=== PATIENT | male | born 1935 | race Caucasian/White ===

== ENCOUNTER 2021-02-13 10:06 | Emergency (ER) | payer BC ==
[2021-02-13] MEDS ORDERED: FAMOTIDINE 20 MG/50 ML IVPB 20 MG/50 ML MG IVPB ONE ×2 (10:52→11:27)
[2021-02-13] MEDS ORDERED: MAG HYDROX/AL HYDROX/SIMETH -MYLANTA- ORAL SUSPENSION PO ONE (10:52)
[2021-02-13] MEDS ORDERED: MAG HYDROX/AL HYDROX/SIMETH 30 ML UNIT-DOSE CUP ONE (11:27)
[2021-02-13 11:48] LABS: EOS % 0.5 % (0-4.5); MCH 33.1 pg (25.7-33.7); WHITE BLOOD COUNT 5.7 K/mm3 (4.0-10.8)
[2021-02-13 11:52] LABS: ALBUMIN 3.8 g/dl (3.4-5.0); BILIRUBIN,TOTAL 0.8 mg/dl (0.2-1); CREATININE 1.2 mg/dl (0.55-1.3); TOT PROT 6.8 g/dl (6.4-8.2)
[2021-02-13 12:02] LABS: BASO % 4.1 % (0-2.0); HEMATOCRIT 36.6 % (35.4-49); HEMOGLOBIN 12.6 GM/dl (11.7-16.9); LYMPH % 11.2 % (8-40); MCHC 34.3 g/dl (32.0-35.9); MEAN CELL VOLUME 96.5 fl (80-96); MEAN PLT VOLUME 7.5 fl (7.5-11.1); NEUT % 72.2 % (42.8-82.8); PLATELET COUNT 152 10^3/uL (134-434); RDW 12.5 % (11.9-15.9)
[2021-02-13 12:26] LABS: EPITHELIAL CELLS RARE /hpf
[2021-02-13 12:58] VITALS: BP 160/84; PULSE 62; TEMP 97.7; BMI 23.6
[2021-02-13 13:00] LABS: LIPASE 315 U/L (73-393)
[2021-02-13] MEDS ORDERED: ONDANSETRON 4 MG/2 ML VIAL IVPUSH ONE (13:25)
[2021-02-13] MEDS ORDERED: ONDANSETRON 4 MG/2 ML VIAL ONE (13:28)
[2021-02-13 14:21] LABS: N-TERMINAL BNP 987.2 pg/ml (5-450)
== END 2021-02-13 17:18 | disposition home or self-care (01) ==
LOC: FER 10:06
PROC: 3E033NZ Introduction of Analgesics, Hypnotics, Sedatives into Peripheral Vein, Percutaneous Approach (ICD-10-PCS; principal; 2021-02-13)
PROC: 3E033GC Introduction of Other Therapeutic Substance into Peripheral Vein, Percutaneous Approach (ICD-10-PCS; 2021-02-13)
DX: K59.00 Constipation, unspecified (principal)
CPT/HCPCS: 36415; 71045-TC-FY; 71275-TC; 74174-TC; 80053; 81003; 81015; 82550; 83605; 83690; 83880; 84484; 85025; 87086; 87186; 93005; 96365; 96375; 99285-25; C9803; Q9967; U0003; U0005

== ENCOUNTER 2021-03-09 14:40 | Emergency (ER) | payer BC ==
[2021-03-09 14:57] VITALS: TEMP 97.6; BMI 23.5
[2021-03-09] MEDS ORDERED: ACETAMINOPHEN 325 MG TABLET (FP) PO ONE (15:14)
[2021-03-09] MEDS ORDERED: FAMOTIDINE 20 MG/50 ML IVPB 20 MG/50 ML MG IVPB ONE ×2 (15:22→15:28)
[2021-03-09] MEDS ORDERED: MAG HYDROX/AL HYDROX/SIMETH -MYLANTA- ORAL SUSPENSION PO ONE (15:22)
[2021-03-09] MEDS ORDERED: ACETAMINOPHEN 325 MG TABLET (FP) ONE (15:23)
[2021-03-09] MEDS ORDERED: MAG HYDROX/AL HYDROX/SIMETH 30 ML UNIT-DOSE CUP ONE (15:28)
[2021-03-09 16:00] VITALS: BP 160/76; PULSE 84
[2021-03-09] MEDS ORDERED: AZITHROMYCIN 500 MG TABLET PO ONE (16:22)
[2021-03-09] MEDS ORDERED: AZITHROMYCIN 500 MG TABLET ONE (16:23)
[2021-03-09 16:28] LABS: ALBUMIN 3.5 g/dl (3.4-5.0); BILIRUBIN,TOTAL 1.3 mg/dl (0.2-1); CALCIUM 9.4 mg/dl (8.5-10); CREATININE 1.3 mg/dl (0.55-1.3); TOT PROT 7.1 g/dl (6.4-8.2)
[2021-03-09] MEDS ORDERED: AMOX TR/POT CLAV 875MG/125MG TABLETS (FP) PO ONE (16:28)
[2021-03-09] MEDS ORDERED: AMOX TR/POT CLAV 875MG/125MG TABLETS (FP) ONE (16:29)
[2021-03-09 17:42] LABS: BASO % 0.1 % (0-2.0); HEMATOCRIT 39.7 % (35.4-49); HEMOGLOBIN 13.7 GM/dL (11.7-16.9); LYMPH % 7.9 % (8-40); MCH 33.2 pg (25.7-33.7); MCHC 34.5 g/dl (32.0-35.9); MEAN CELL VOLUME 96.4 fl (80-96); MEAN PLT VOLUME 7.8 fl (7.5-11.1); MONO % 7.2 % (3.8-10.2); NEUT % 84.8 % (42.8-82.8); PLATELET COUNT 197 10^3/uL (134-434); RBC 4.12 M/mm3 (4.00-5.60); RDW 13.7 % (11.9-15.9); WHITE BLOOD COUNT 8.2 K/mm3 (4.0-10.0)
[2021-03-09 17:44] LABS: N-TERMINAL BNP 1649.1 pg/ml (5-450)
== END 2021-03-09 16:45 | disposition left against medical advice (07) ==
LOC: FER 14:40
DX: S22.000A Wedge compression fracture of unspecified thoracic vertebra, initial encounter for closed fracture (principal); J18.9 Pneumonia, unspecified organism
CPT/HCPCS: 36415; 71046-TC-FY; 80053; 82550; 83690; 83880; 84484; 85025; 93005; 99284-25; C9803; U0003; U0005

== ENCOUNTER 2021-10-02 12:10 | Emergency (ER) | payer BC ==
[2021-10-02 12:18] VITALS: BP 133/68; PULSE 89; TEMP 98.9; BMI 24.3
[2021-10-02] MEDS ORDERED: DALBAVANCIN HCL 1,500 MG in DEXTROSE 5%-WATER - 500 ML IVPB ONE (13:03)
[2021-10-02] MEDS ORDERED: DIPHTH,PERTUSS(ACELL),TET 0.5 ML DISP.SYRIN IM ONE ×2 (13:03→13:07)
[2021-10-02 13:24] LABS: HEMATOCRIT 34.1 % (35.4-49); MCH 33.3 pg (25.7-33.7); MCHC 35.3 g/dl (32.0-35.9); MEAN CELL VOLUME 94.4 fl (80-96); MEAN PLT VOLUME 7.8 fl (7.5-11.1); PLATELET COUNT 115.9 10^3/uL (134-434); RBC 3.61 10^6/uL (4.00-5.60); RDW 14.2 % (11.9-15.9); WHITE BLOOD COUNT 10.2 10^3/uL (4.0-10.8)
[2021-10-02 13:29] LABS: ALBUMIN 3.6 g/dl (3.4-5.0); BILIRUBIN,TOTAL 1.4 mg/dl (0.2-1); CREATININE 1.6 mg/dl (0.55-1.3); TOT PROT 6.5 g/dl (6.4-8.2)
[2021-10-02 13:40] LABS: INR 1.03 (0.83-1.09); PROTHROMBIN TIME (PATIENT) 11.9 SEC (9.7-13.0)
[2021-10-02 13:41] LABS: CALCIUM 9.3 mg/dl (8.5-10)
[2021-10-02 13:42] LABS: ACTIVATED PTT 18.4 SECONDS (25.2-36.5)
[2021-10-02 14:21] LABS: TOXIC GRANULATION FEW
[2021-10-02] MEDS ORDERED: CLINDAMYCIN HCL 150 MG CAPSULE (FP) PO ONE (14:37)
[2021-10-02] MEDS ORDERED: CLINDAMYCIN HCL 150 MG CAPSULE (FP) ONE (14:43)
== END 2021-10-02 15:30 | disposition left against medical advice (07) ==
LOC: FER 12:10
PROC: 3E03329 Introduction of Other Anti-infective into Peripheral Vein, Percutaneous Approach (ICD-10-PCS; principal; 2021-10-02)
PROC: 3E0234Z Introduction of Serum, Toxoid and Vaccine into Muscle, Percutaneous Approach (ICD-10-PCS; 2021-10-02)
DX: L03.116 Cellulitis of left lower limb (principal)
CPT/HCPCS: 0241U-QW; 36415; 71045-TC-FY; 71046-TC-FY; 73590-TC-LT-FY; 80053; 85025; 85610; 85730; 86850; 86900; 86901; 87040; 87633; 90471; 90715; 93005; 96374; 99285-25; J0875

== ENCOUNTER 2021-10-04 13:40 | Inpatient (IN) | payer BC ==
[2021-10-04 13:53] VITALS: BP 109/61; PULSE 86; TEMP 98.7; BMI 23.5
[2021-10-04] MEDS ORDERED: VANCOMYCIN 1 GM in D5W (PRE-DOCKED) 1,000 MG/250 ML IVPB ONE (14:10)
[2021-10-04] MEDS ORDERED: PIPERACILLIN/TAZOB 4.5 GM 4.5 GM/100 ML BAG IVPB ONE (14:10)
[2021-10-04 15:19] LABS: HEMATOCRIT 38.5 % (35.4-49); HEMOGLOBIN 13.7 G/dL (11.7-16.9); MCH 33.2 pg (25.7-33.7); MCHC 35.5 g/dl (32.0-35.9); MEAN CELL VOLUME 93.7 fl (80-96); MEAN PLT VOLUME 8.1 fl (7.5-11.1); RBC 4.11 10^6/uL (4.00-5.60); RDW 14.9 % (11.9-15.9); WHITE BLOOD COUNT 7.5 10^3/uL (4.0-10.8)
[2021-10-04] MEDS ORDERED: VANCOMYCIN 1,000 MG VIAL (RESTRICTED TO ID ONLY) ONE (15:26)
[2021-10-04] MEDS ORDERED: PIPERACILLIN/TAZOBACTAM 4.5 GM VIAL IVPB ONE (15:26)
[2021-10-04 15:27] LABS: ALBUMIN 3.7 g/dl (3.4-5.0); BILIRUBIN,TOTAL 1.3 mg/dl (0.2-1); CALCIUM 9.3 mg/dl (8.5-10); CREATININE 1.6 mg/dl (0.55-1.3); TOT PROT 7.4 g/dl (6.4-8.2)
[2021-10-04] MEDS ORDERED: ACETAMINOPHEN 325 MG TABLET (FP) PO PRN (15:58)
[2021-10-04 16:02] LABS: PLATELET ESTIMATE ADEQUATE
[2021-10-04] MEDS ORDERED: ASPIRIN 81 MG CHEWABLE TABLETS PO SCH (22:00)
[2021-10-04] MEDS ORDERED: HYDROCHLOROTHIAZIDE 25 MG TABLET (FP) PO SCH (22:00)
[2021-10-04] MEDS ORDERED: ATORVASTATIN CA 10 MG TABLET (FP) PO SCH (22:00)
[2021-10-04] MEDS ORDERED: hydrALAZINE HCL 50 MG TABLET (FP) PO SCH (22:00)
[2021-10-04] MEDS ORDERED: PATIENT'S OWN MEDICATION (NON-FORMULARY) (Valsartan/Hydrochlorothiazide [Valsartan-Hctz 32 PO SCH (22:00)
[2021-10-04] MEDS ORDERED: VALSARTAN 160 MG TABLET PO SCH (22:00)
[2021-10-04] MEDS ORDERED: PIPERACILLIN/TAZOB 3.375 GM 3.375 GM in DEXTROSE 5%-WATER - 50 ML IVPB SCH (23:00)
[2021-10-05] MEDS ORDERED: METOPROLOL TARTRATE 50 MG TABLET (FP) PO SCH (10:00)
[2021-10-05] MEDS ORDERED: ENOXAPARIN NA (PORCINE) 40 MG/0.4 ML DISP.SYRIN SQ SCH (10:00)
[2021-10-05] MEDS ORDERED: FAMOTIDINE 20 MG TABLET PO SCH (10:00)
[2021-10-05] MEDS ORDERED: PIPERACILLIN/TAZOB 3.375 GM 3.375 GM in DEXTROSE 5%-WATER - 50 ML IVPB SCH (23:00)
== END 2021-10-04 20:37 | disposition left against medical advice (07) | DRG 602 ==
LOC: FER 13:40 → FM/S 16:02
PROVIDERS: ADMIT Internal Medicine; ATTEND Internal Medicine
DX: L03.116 Cellulitis of left lower limb (principal); U07.1 COVID-19; I10 Essential (primary) hypertension; E11.9 Type 2 diabetes mellitus without complications; E78.5 Hyperlipidemia, unspecified; I25.2 Old myocardial infarction
CPT/HCPCS: 36415; 80053; 85027; 86140; 87040; 93971-TC; 99285-25; C9803-CS; U0003; U0005

== ENCOUNTER 2022-02-10 06:16 | Observation (INO) | payer BC, OTHER ==
[2022-02-10] MEDS ORDERED: SODIUM CHLORIDE 1,000 ML IV ONE (07:00)
[2022-02-10] MEDS ORDERED: ACETAMINOPHEN 1000 MG/100 ML BAG IVPB ONE (07:07)
[2022-02-10] MEDS ORDERED: VANCOMYCIN 1 GM in D5W (PRE-DOCKED) 1,000 MG/250 ML IVPB ONE (07:07)
[2022-02-10] MEDS ORDERED: PIPERACILLIN/TAZOB 4.5 GM 4.5 GM/100 ML BAG IVPB ONE (07:07)
[2022-02-10] MEDS ORDERED: ACETAMINOPHEN INJECTION 100 ML IVPB ONE (07:46)
[2022-02-10] MEDS ORDERED: PIPERACILLIN/TAZOBACTAM 4.5 GM VIAL IVPB ONE (07:46)
[2022-02-10] MEDS ORDERED: VANCOMYCIN 1,000 MG VIAL (RESTRICTED TO ID ONLY) ONE (07:47)
[2022-02-10 08:47] LABS: HEMATOCRIT 43.3 % (35.4-49); MCH 33.5 pg (25.7-33.7); MCHC 34.6 g/dl (32.0-35.9); MEAN CELL VOLUME 96.8 fl (80-96); MEAN PLT VOLUME 8.5 fl (7.5-11.1); PLATELET COUNT 120.9 10^3/uL (134-434); RBC 4.47 10^6/uL (4.00-5.60); RDW 13.4 % (11.9-15.9)
[2022-02-10 09:19] LABS: INR 1.04 (0.83-1.09)
[2022-02-10 09:22] LABS: ACTIVATED PTT 28.6 SECONDS (25.2-36.5)
[2022-02-10 09:34] LABS: VENOUS BASE EXCESS 1.2 mmol/L (-2-2); VENOUS O2 SATURATION 31.2 % (70-80); VENOUS PCO2 48.4 mmHg (38-52); VENOUS PH 7.37 (7.310-7.410)
[2022-02-10 09:42] LABS: ALBUMIN 3.5 g/dl (3.4-5.0); BILIRUBIN,TOTAL 1.3 mg/dl (0.2-1); CALCIUM 8.8 mg/dl (8.5-10); TOT PROT 6.5 g/dl (6.4-8.2)
[2022-02-10 09:47] LABS: AMORP PHOS 1+ /hpf (NONE SEEN)
[2022-02-10 10:02] LABS: LACTIC ACID 3.6 mmol/L (0.4-2.0)
[2022-02-10] MEDS ORDERED: SODIUM CHLORIDE 500 ML IV STA (11:12)
[2022-02-10] MEDS ORDERED: POTASSIUM CHLORIDE TABS 20 MEQ TABLET.ER (FP) PO ONE (11:27)
[2022-02-10] MEDS ORDERED: VALSARTAN 160 MG TABLET PO ONE (11:28)
[2022-02-10 12:15] LABS: MAGNESIUM 1.6 mg/dL (1.8-2.4); PHOSPHOROUS 3.3 mg/dl (2.5-4.9)
[2022-02-10 12:32] VITALS: BMI 20.2
[2022-02-10] MEDS: hydrALAZINE HCL 50 MG TABLET (FP) PO SCH ×2 (12:54→22:40)
[2022-02-10] MEDS ORDERED: oxyCODONE HCL 5 MG TABLET PO PRN (13:09)
[2022-02-10] MEDS ORDERED: ACETAMINOPHEN 1000 MG/100 ML BAG IVPB PRN (13:09)
[2022-02-10] MEDS ORDERED: MAGNESIUM SULF 50% (8.12 MEQ/2 ML-1 GM VIAL) IVPB ONE (14:11)
[2022-02-10] MEDS: PIPERACILLIN/TAZOB 3.375 GM 3.375 GM in DEXTROSE 5%-WATER - 50 ML IVPB SCH (17:48)
[2022-02-10] MEDS ORDERED: PIPERACILLIN/TAZOB 3.375 GM 3.375 GM in DEXTROSE 5%-WATER - 50 ML IVPB SCH (18:00)
[2022-02-10] MEDS ORDERED: FAMOTIDINE 20 MG TABLET PO SCH ×2 (22:00)
[2022-02-10] MEDS: ASPIRIN 81 MG CHEWABLE TABLETS PO SCH (22:50)
[2022-02-11] MEDS: PIPERACILLIN/TAZOB 3.375 GM 3.375 GM in DEXTROSE 5%-WATER - 50 ML IVPB SCH ×3 (03:07→18:07)
[2022-02-11 08:23] LABS: HEMATOCRIT 38.9 % (35.4-49); HEMOGLOBIN 13.4 G/dL (11.7-16.9); MCH 32.1 pg (25.7-33.7); MCHC 34.3 g/dl (32.0-35.9); MEAN CELL VOLUME 93.5 fl (80-96); MEAN PLT VOLUME 7.5 fl (7.5-11.1); PLATELET COUNT 110.4 10^3/uL (134-434); RBC 4.16 10^6/uL (4.00-5.60); RDW 13.6 % (11.9-15.9); WHITE BLOOD COUNT 7.7 10^3/uL (4.0-10.8)
[2022-02-11 08:25] LABS: CALCIUM 8.3 mg/dl (8.5-10); CREATININE 1.1 mg/dl (0.55-1.3); MAGNESIUM 2.2 mg/dL (1.8-2.4); PHOSPHOROUS 2.4 mg/dl (2.5-4.9)
[2022-02-11] MEDS: ENOXAPARIN NA (PORCINE) 40 MG/0.4 ML DISP.SYRIN SQ SCH (09:13)
[2022-02-11] MEDS: FAMOTIDINE 20 MG TABLET PO SCH (09:14)
[2022-02-11] MEDS: hydrALAZINE HCL 50 MG TABLET (FP) PO SCH ×2 (09:14→22:16)
[2022-02-11] MEDS: FUROSEMIDE 40 MG TABLET (FP) PO SCH (09:45)
[2022-02-11] MEDS ORDERED: NAPH,MB-DB/K PH,MBDB POWDER PACKET PO ONE (09:45)
[2022-02-11] MEDS: ASPIRIN 81 MG CHEWABLE TABLETS PO SCH (22:16)
[2022-02-11] MEDS: CELECOXIB 100 MG CAPSULE PO SCH (22:16)
[2022-02-12] MEDS: PIPERACILLIN/TAZOB 3.375 GM 3.375 GM in DEXTROSE 5%-WATER - 50 ML IVPB SCH ×2 (03:00→10:04)
[2022-02-12 08:21] LABS: CALCIUM 8.5 mg/dl (8.5-10); CREATININE 1.2 mg/dl (0.55-1.3)
[2022-02-12 08:31] LABS: HEMATOCRIT 40.7 % (35.4-49); HEMOGLOBIN 13.8 G/dL (11.7-16.9); MCH 31.8 pg (25.7-33.7); MCHC 33.8 g/dl (32.0-35.9); MEAN CELL VOLUME 94.2 fl (80-96); MEAN PLT VOLUME 7.6 fl (7.5-11.1); PLATELET COUNT 120.7 10^3/uL (134-434); RBC 4.32 10^6/uL (4.00-5.60); WHITE BLOOD COUNT 7.4 10^3/uL (4.0-10.8)
[2022-02-12] MEDS: hydrALAZINE HCL 50 MG TABLET (FP) PO SCH (09:59)
[2022-02-12] MEDS: FUROSEMIDE 40 MG TABLET (FP) PO SCH (10:01)
[2022-02-12] MEDS: CELECOXIB 100 MG CAPSULE PO SCH (10:01)
[2022-02-12] MEDS: FAMOTIDINE 20 MG TABLET PO SCH (10:02)
[2022-02-12] MEDS: ENOXAPARIN NA (PORCINE) 40 MG/0.4 ML DISP.SYRIN SQ SCH (10:02)
[2022-02-12 14:23] VITALS: BP 133/68; PULSE 59; RESP 16; TEMP 98.1
== END 2022-02-12 15:45 | disposition home or self-care (01) ==
LOC: FER 06:16 → SUPCPDRO 06:16 → FM/S 10:18 → UNDOADMOB 10:18 → INTOOBSV 10:18 → FM/S 11:22
PROVIDERS: ADMIT Internal Medicine
PROC: 3E03329 Introduction of Other Anti-infective into Peripheral Vein, Percutaneous Approach (ICD-10-PCS; principal; 2022-02-10)
PROC: 3E0337Z Introduction of Electrolytic and Water Balance Substance into Peripheral Vein, Percutaneous Approach (ICD-10-PCS; 2022-02-10)
DX: M70.12 Bursitis, left hand (principal); M19.032 Primary osteoarthritis, left wrist; I10 Essential (primary) hypertension; E78.5 Hyperlipidemia, unspecified; Z87.891 Personal history of nicotine dependence; K21.9 Gastro-esophageal reflux disease without esophagitis; E11.9 Type 2 diabetes mellitus without complications; M85.80 Other specified disorders of bone density and structure, unspecified site
CPT/HCPCS: 0241U-QW; 36415; 71045-TC-FY; 73110-TC-LT-FY; 80048; 80053; 81003; 81015; 82550; 82803; 83605; 83735; 84100; 84484; 85027; 85610; 85730; 87040; 87086; 93005; 96361; 96365; 96366; 96367; 96368; 96372; 96375; 97116-GP; 97162-GP; 99285-25; G0378

== ENCOUNTER 2023-07-04 10:12 | Inpatient (IN) | payer OTHER ==
[2023-07-04] MEDS ORDERED: ACETAMINOPHEN INJECTION 100 ML IVPB ONE (11:35)
[2023-07-04] MEDS: ACETAMINOPHEN 1000 MG/100 ML BAG IVPB ONE (11:53)
[2023-07-04] MEDS ORDERED: CEFTRIAXONE 1 GM/50 ML BAG ONE (11:55)
[2023-07-04 12:22] LABS: INR 1.56 (0.83-1.09); WHITE BLOOD COUNT 7.4 K/mm3 (4.0-10.0)
[2023-07-04 12:23] LABS: BASO % 0.3 % (0-2.0); EOS % 0.1 % (0-4.5); HEMATOCRIT 34.3 % (35.4-49); HEMOGLOBIN 11.6 GM/dL (11.7-16.9); LYMPH % 22.7 % (8-40); MCH 31.3 pg (25.7-33.7); MCHC 33.9 g/dl (32.0-35.9); MEAN CELL VOLUME 92.4 fl (80-96); MEAN PLT VOLUME 6.9 fl (7.5-11.1); MONO % 14.5 % (3.8-10.2); NEUT % 62.4 % (42.8-82.8); PLATELET COUNT 223 10^3/uL (134-434); RBC 3.71 M/mm3 (4.00-5.60); RDW 15.5 % (11.9-15.9)
[2023-07-04 12:24] LABS: ACTIVATED PTT 32.1 SECONDS (25.2-36.5)
[2023-07-04 12:34] LABS: POTASSIUM 3.1 mmol/L (3.5-5.1)
[2023-07-04 12:37] LABS: ALBUMIN 2.4 g/dl (3.4-5.0); CALCIUM 8.1 mg/dL (8.5-10.1)
[2023-07-04 12:38] LABS: BLOOD UREA NITROGEN 17.4 mg/dL (7-18)
[2023-07-04 12:41] LABS: CREATININE 0.8 mg/dL (0.55-1.3)
[2023-07-04 12:42] LABS: BILIRUBIN,TOTAL 0.4 mg/dL (0.2-1); TOT PROT 6.1 g/dl (6.4-8.2)
[2023-07-04 13:28] LABS: MAGNESIUM 1.5 mg/dL (1.8-2.4)
[2023-07-04] MEDS: CEFTRIAXONE 1 GM in DEXTROSE 5%-WATER - 100 ML IVPB ONE (13:30)
[2023-07-04] MEDS ORDERED: POTASSIUM CHLORIDE TABS 10 MEQ TABLET.ER (FP) ONE (13:44)
[2023-07-04] MEDS: POTASSIUM CHLORIDE TABS 20 MEQ TABLET.ER (FP) PO ONE (13:50)
[2023-07-04] MEDS: KCL 10 MEQ IVPB 10 MEQ/100 ML INFUS.BAG IVPB SCH (14:00)
[2023-07-04] MEDS: SODIUM CHLORIDE 0.9% 500 ML INFUS.BAG IV ONE (14:10)
[2023-07-04] MEDS ORDERED: KCL 10 MEQ IVPB 10 MEQ/100 ML INFUS.BAG IVPB ONE ×2 (14:51→16:30)
[2023-07-04] MEDS: CEFAZOLIN 1 GM in DEXTROSE 5%-WATER - 50 ML IVPB ONE (15:06)
[2023-07-04] MEDS: SODIUM ZIRCONIUM CYCLOSILICATE (LOKELMA) 5 GM PACKET PO ONE (15:06)
[2023-07-04] MEDS ORDERED: PIPERACILLIN/TAZOB 3.375 GM 3.375 GM in DEXTROSE 5%-WATER - 50 ML IVPB SCH (18:00)
[2023-07-04] MEDS: PIPERACILLIN/TAZOB 3.375 GM 3.375 GM in DEXTROSE 5%-WATER - 50 ML IVPB SCH (18:26)
[2023-07-04] MEDS ORDERED: PIPERACILLIN/TAZOBACTAM 3.375 GM VIAL IVPB ONE (18:27)
[2023-07-04 18:59] LABS: POTASSIUM 4.6 mmol/L (3.5-5.1)
[2023-07-04 19:00] LABS: CALCIUM 8.7 mg/dL (8.5-10.1)
[2023-07-04 19:04] LABS: CREATININE 0.7 mg/dL (0.55-1.3)
[2023-07-04] MEDS: ASPIRIN 81 MG CHEWABLE TABLETS PO SCH (21:52)
[2023-07-04] MEDS: FAMOTIDINE 20 MG TABLET PO SCH (21:52)
[2023-07-04] MEDS: HEPARIN NA (PORCINE) 5,000 UNITS/ML 1ML VIAL SQ SCH (21:52)
[2023-07-04] MEDS: hydrALAZINE HCL 50 MG TABLET (FP) PO SCH (21:52)
[2023-07-05 09:06] LABS: BASO % 0.7 % (0-2.0); EOS % 0.5 % (0-4.5); HEMATOCRIT 32.9 % (35.4-49); LYMPH % 20.7 % (8-40); MCH 31.1 pg (25.7-33.7); MCHC 33.6 g/dl (32.0-35.9); MEAN CELL VOLUME 92.6 fl (80-96); MEAN PLT VOLUME 7.2 fl (7.5-11.1); NEUT % 65.1 % (42.8-82.8); PLATELET COUNT 202 10^3/uL (134-434); RBC 3.55 M/mm3 (4.00-5.60); RDW 15.4 % (11.9-15.9)
[2023-07-05 09:27] LABS: POTASSIUM 3.8 mmol/L (3.5-5.1)
[2023-07-05 09:33] LABS: CALCIUM 8.1 mg/dL (8.5-10.1)
[2023-07-05 09:34] LABS: ALBUMIN 2.3 g/dl (3.4-5.0); BLOOD UREA NITROGEN 15.4 mg/dL (7-18); MAGNESIUM 1.6 mg/dL (1.8-2.4)
[2023-07-05 09:36] LABS: CREATININE 0.7 mg/dL (0.55-1.3)
[2023-07-05 09:37] LABS: BILIRUBIN,TOTAL 0.7 mg/dL (0.2-1)
[2023-07-05] MEDS: VALSARTAN 160 MG TABLET PO SCH (09:40)
[2023-07-05 10:24] LABS: EPI CELLS 33 /uL (0-25.1); HYALINE CASTS 0 /uL (0-3.1); PH,URINE 8.5 (5.0-8.0); URINE APPEARANCE CLEAR; URINE BACTERIA 123 /uL (0-1359); URINE BILIRUBIN NEGATIVE (NEGATIVE); URINE COLOR YELLOW; URINE GLUCOSE (UA) 1+ (NEGATIVE); URINE KETONE NEGATIVE (NEGATIVE); URINE LEUK ESTERASE NEGATIVE (NEGATIVE); URINE NITRITE NEGATIVE (NEGATIVE); URINE PROTEIN 3+ (NEGATIVE); URINE RBC 34 /uL (0-23.9); URINE WBC 11 /uL (0-25.8)
[2023-07-05] MEDS: ACETAMINOPHEN 325 MG TABLET (FP) PO PRN (14:39)
[2023-07-05] MEDS: CEFAZOLIN 1 GM in DEXTROSE 5%-WATER - 50 ML IVPB SCH (17:56)
[2023-07-06] MEDS: MAGNESIUM OXIDE 400 MG TABLET (FP) PO SCH (22:51)
[2023-07-08] MEDS ORDERED: INSULIN ASPART SLIDING SCALE (NOVOLOG) 1 VIAL SQ ONE (07:24)
[2023-07-08 10:31] LABS: POTASSIUM 3.6 mmol/L (3.5-5.1)
[2023-07-08 10:46] LABS: CALCIUM 8.2 mg/dL (8.5-10.1)
[2023-07-08 10:47] LABS: ALBUMIN 2.2 g/dl (3.4-5.0)
[2023-07-08 10:48] LABS: BILIRUBIN,TOTAL 0.4 mg/dL (0.2-1)
[2023-07-08 10:50] LABS: CREATININE 0.9 mg/dL (0.55-1.3)
[2023-07-08 10:52] LABS: TOT PROT 5.6 g/dl (6.4-8.2)
[2023-07-08] MEDS: MULTIVITAMINS (DAILY MVI) TABLET (FP) PO SCH (13:01)
[2023-07-08] MEDS: ASCORBIC ACID 250 MG TABLET (FP) PO SCH (13:01)
[2023-07-08] MEDS: CEFAZOLIN 1 GM in DEXTROSE 5%-WATER - 50 ML IVPB SCH (23:48)
[2023-07-09] MEDS: DOCUSATE SODIUM 100 MG CAPSULE (FP) PO PRN (10:01)
[2023-07-09 10:20] LABS: BASO % 0.4 % (0-2.0); EOS % 0.3 % (0-4.5); HEMATOCRIT 33.2 % (35.4-49); HEMOGLOBIN 11.2 GM/dL (11.7-16.9); LYMPH % 18.9 % (8-40); MCH 31.3 pg (25.7-33.7); MCHC 33.7 g/dl (32.0-35.9); MEAN CELL VOLUME 92.9 fl (80-96); MEAN PLT VOLUME 7.4 fl (7.5-11.1); MONO % 13.2 % (3.8-10.2); NEUT % 67.2 % (42.8-82.8); PLATELET COUNT 194 10^3/uL (134-434); RBC 3.58 M/mm3 (4.00-5.60); RDW 15.8 % (11.9-15.9); WHITE BLOOD COUNT 6.5 K/mm3 (4.0-10.0)
[2023-07-09 10:30] LABS: POTASSIUM 3.8 mmol/L (3.5-5.1)
[2023-07-09 10:37] LABS: ALBUMIN 2.3 g/dl (3.4-5.0); BLOOD UREA NITROGEN 19.8 mg/dL (7-18); CALCIUM 8.3 mg/dL (8.5-10.1)
[2023-07-09 10:41] LABS: CREATININE 0.8 mg/dL (0.55-1.3)
[2023-07-09 10:42] LABS: BILIRUBIN,TOTAL 0.4 mg/dL (0.2-1); TOT PROT 5.8 g/dl (6.4-8.2)
[2023-07-10 08:39] LABS: BASO % 0.2 % (0-2.0); EOS % 0.5 % (0-4.5); HEMATOCRIT 30.1 % (35.4-49); HEMOGLOBIN 10.3 GM/dL (11.7-16.9); LYMPH % 21.5 % (8-40); MCH 31.8 pg (25.7-33.7); MCHC 34.2 g/dl (32.0-35.9); MEAN CELL VOLUME 92.8 fl (80-96); MEAN PLT VOLUME 7.3 fl (7.5-11.1); MONO % 14.8 % (3.8-10.2); PLATELET COUNT 185 10^3/uL (134-434); RBC 3.24 M/mm3 (4.00-5.60); RDW 16.1 % (11.9-15.9); WHITE BLOOD COUNT 7.1 K/mm3 (4.0-10.0)
[2023-07-10] MEDS ORDERED: SODIUM CHLORIDE 1,000 ML IV STA (13:10)
[2023-07-10] MEDS ORDERED: PANTOPRAZOLE SODIUM 40 MG VIAL IVPUSH ONE (13:30)
[2023-07-10] MEDS ORDERED: PANTOPRAZOLE SODIUM 80 MG in SODIUM CHLORIDE 100 ML IVPB SCH (13:30)
[2023-07-10] MEDS: SODIUM CHLORIDE 1,000 ML IV SCH (14:00)
[2023-07-10] MEDS ORDERED: PANTOPRAZOLE SODIUM 160 MG in SODIUM CHLORIDE 290 ML IVPB SCH (14:30)
[2023-07-10 14:52] LABS: BASO % 0.4 % (0-2.0); EOS % 0.8 % (0-4.5); HEMATOCRIT 28.7 % (35.4-49); HEMOGLOBIN 9.4 GM/dL (11.7-16.9); LYMPH % 18.8 % (8-40); MCH 30.8 pg (25.7-33.7); MCHC 32.9 g/dl (32.0-35.9); MEAN CELL VOLUME 93.7 fl (80-96); MEAN PLT VOLUME 7.3 fl (7.5-11.1); PLATELET COUNT 193 10^3/uL (134-434); RBC 3.07 M/mm3 (4.00-5.60); RDW 16.2 % (11.9-15.9); WHITE BLOOD COUNT 10.4 K/mm3 (4.0-10.0)
[2023-07-10 14:57] LABS: INR 1.18 (0.83-1.09); PROTHROMBIN TIME (PATIENT) 13.7 SEC (9.7-13.0)
[2023-07-10 14:59] LABS: ACTIVATED PTT 33.3 SECONDS (25.2-36.5)
[2023-07-10] MEDS ORDERED: EPINEPHrine 1:10,000 (P-F SYR) 1 MG/10 ML DISP.SYRIN ONE (15:03)
[2023-07-10 15:15] LABS: CALCIUM 7.7 mg/dL (8.5-10.1); POTASSIUM 4.2 mmol/L (3.5-5.1)
[2023-07-10 15:16] LABS: BLOOD UREA NITROGEN 19.4 mg/dL (7-18)
[2023-07-10 15:19] LABS: CREATININE 0.7 mg/dL (0.55-1.3)
[2023-07-10 15:21] LABS: BILIRUBIN,TOTAL 0.3 mg/dL (0.2-1); TOT PROT 5.1 g/dl (6.4-8.2)
[2023-07-10] MEDS: EPINEPHrine 1:10,000 (P-F SYR) 1 MG/10 ML DISP.SYRIN IVPUSH ONE (16:04)
[2023-07-10] MEDS ORDERED: DOCUSATE SODIUM 100 MG CAPSULE (FP) PO PRN (18:52)
[2023-07-10] MEDS ORDERED: ACETAMINOPHEN 325 MG TABLET (FP) PO PRN (18:52)
[2023-07-10 19:57] LABS: BASO % 0.7 % (0-2.0); EOS % 0.2 % (0-4.5); HEMATOCRIT 29.2 % (35.4-49); HEMOGLOBIN 9.7 GM/dL (11.7-16.9); LYMPH % 15.7 % (8-40); MCH 30.4 pg (25.7-33.7); MCHC 33.1 g/dl (32.0-35.9); MEAN CELL VOLUME 91.8 fl (80-96); MEAN PLT VOLUME 7.1 fl (7.5-11.1); MONO % 13.9 % (3.8-10.2); NEUT % 69.5 % (42.8-82.8); PLATELET COUNT 168 10^3/uL (134-434); RBC 3.18 M/mm3 (4.00-5.60); RDW 17.4 % (11.9-15.9); WHITE BLOOD COUNT 8.5 K/mm3 (4.0-10.0)
[2023-07-10] MEDS: hydrALAZINE HCL 50 MG TABLET (FP) PO SCH (22:00)
[2023-07-10] MEDS: SODIUM CHLORIDE 1,000 ML IV STA (23:50)
[2023-07-10] MEDS: FAMOTIDINE 20 MG TABLET PO SCH (23:52)
[2023-07-10] MEDS: MAGNESIUM OXIDE 400 MG TABLET (FP) PO SCH (23:52)
[2023-07-10] MEDS: CHLORHEXIDINE GLUCONATE 4% CLEANSER FOR DECOLONIZATION TP SCH (23:52)
[2023-07-10] MEDS: MUPIROCIN 2% TOPICAL OINTMENT FOR DECOLONIZATION NS SCH (23:53)
[2023-07-10] MEDS: POLYETHYLENE GLYCOL (HEALTHYLAX) 3350 17 GM PACKET PO SCH (23:53)
[2023-07-11] MEDS: CEFAZOLIN 1 GM in DEXTROSE 5%-WATER - 50 ML IVPB SCH ×2 (00:45→23:56)
[2023-07-11 07:21] LABS: BASO % 0.4 % (0-2.0); EOS % 0.9 % (0-4.5); HEMATOCRIT 27.5 % (35.4-49); HEMOGLOBIN 9.4 GM/dL (11.7-16.9); LYMPH % 23.7 % (8-40); MCH 30.8 pg (25.7-33.7); MCHC 34.2 g/dl (32.0-35.9); MEAN CELL VOLUME 89.8 fl (80-96); MEAN PLT VOLUME 7.3 fl (7.5-11.1); MONO % 15.6 % (3.8-10.2); NEUT % 59.4 % (42.8-82.8); PLATELET COUNT 168 10^3/uL (134-434); RBC 3.06 M/mm3 (4.00-5.60); RDW 17.6 % (11.9-15.9); WHITE BLOOD COUNT 7.9 K/mm3 (4.0-10.0)
[2023-07-11 07:31] LABS: POTASSIUM 4.2 mmol/L (3.5-5.1)
[2023-07-11 07:38] LABS: ALBUMIN 2.1 g/dl (3.4-5.0); BLOOD UREA NITROGEN 17.4 mg/dL (7-18); MAGNESIUM 2.2 mg/dL (1.8-2.4)
[2023-07-11 07:41] LABS: CREATININE 0.7 mg/dL (0.55-1.3); PHOSPHOROUS 2.4 mg/dL (2.5-4.9)
[2023-07-11 07:42] LABS: BILIRUBIN,TOTAL 0.6 mg/dL (0.2-1); TOT PROT 4.9 g/dl (6.4-8.2)
[2023-07-11] MEDS ORDERED: VALSARTAN 160 MG TABLET PO SCH (10:00)
[2023-07-11] MEDS: ASCORBIC ACID 250 MG TABLET (FP) PO SCH (10:40)
[2023-07-11] MEDS: MULTIVITAMINS (DAILY MVI) TABLET (FP) PO SCH (10:40)
[2023-07-11] MEDS: PANTOPRAZOLE 20 MG TABLET PO SCH (13:10)
[2023-07-11 15:45] VITALS: BMI 18.3
[2023-07-11 17:43] LABS: HEMATOCRIT 26.9 % (35.4-49); HEMOGLOBIN 9.1 GM/dL (11.7-16.9); MCH 30.7 pg (25.7-33.7); MCHC 33.8 g/dl (32.0-35.9); MEAN CELL VOLUME 90.8 fl (80-96); MEAN PLT VOLUME 6.9 fl (7.5-11.1); PLATELET COUNT 169 10^3/uL (134-434); RBC 2.96 M/mm3 (4.00-5.60); RDW 18.4 % (11.9-15.9)
[2023-07-11] MEDS: SODIUM CHLORIDE 1,000 ML IV SCH (23:55)
[2023-07-12] MEDS: POLYETHYLENE GLYCOL (HEALTHYLAX) 3350 17 GM PACKET PO SCH (09:22)
[2023-07-12] MEDS: MAGNESIUM OXIDE 400 MG TABLET (FP) PO SCH (09:22)
[2023-07-12] MEDS: ACETAMINOPHEN 325 MG TABLET (FP) PO PRN (09:22)
[2023-07-12] MEDS: ASCORBIC ACID 250 MG TABLET (FP) PO SCH (09:22)
[2023-07-12] MEDS: MULTIVITAMINS (DAILY MVI) TABLET (FP) PO SCH (09:22)
[2023-07-12] MEDS ORDERED: MUPIROCIN 2% TOPICAL OINTMENT FOR DECOLONIZATION NS SCH (10:00)
[2023-07-12] MEDS ORDERED: CHLORHEXIDINE GLUCONATE 4% CLEANSER FOR DECOLONIZATION TP SCH (22:00)
[2023-07-13 12:26] LABS: BASO % 0.2 % (0-2.0); EOS % 0.4 % (0-4.5); HEMATOCRIT 25.8 % (35.4-49); HEMOGLOBIN 8.7 GM/dL (11.7-16.9); LYMPH % 18.4 % (8-40); MCH 30.9 pg (25.7-33.7); MCHC 33.6 g/dl (32.0-35.9); MEAN PLT VOLUME 7.2 fl (7.5-11.1); MONO % 14.6 % (3.8-10.2); NEUT % 66.4 % (42.8-82.8); PLATELET COUNT 177 10^3/uL (134-434); RDW 17.4 % (11.9-15.9); WHITE BLOOD COUNT 7.5 K/mm3 (4.0-10.0)
[2023-07-13 12:53] LABS: BLOOD UREA NITROGEN 11.8 mg/dL (7-18)
[2023-07-13 12:56] LABS: CREATININE 0.7 mg/dL (0.55-1.3)
[2023-07-13 12:57] LABS: BILIRUBIN,TOTAL 0.3 mg/dL (0.2-1); TOT PROT 5.1 g/dl (6.4-8.2)
[2023-07-13 13:50] LABS: POTASSIUM 4.1 mmol/L (3.5-5.1)
[2023-07-16 20:19] LABS: BASO % 0.1 % (0-2.0); EOS % 0.3 % (0-4.5); HEMATOCRIT 25.5 % (35.4-49); HEMOGLOBIN 8.5 GM/dL (11.7-16.9); LYMPH % 14.7 % (8-40); MCH 31.4 pg (25.7-33.7); MCHC 33.6 g/dl (32.0-35.9); MEAN CELL VOLUME 93.4 fl (80-96); MEAN PLT VOLUME 6.9 fl (7.5-11.1); MONO % 12.9 % (3.8-10.2); PLATELET COUNT 210 10^3/uL (134-434); RBC 2.73 M/mm3 (4.00-5.60); RDW 18.7 % (11.9-15.9); WHITE BLOOD COUNT 6.6 K/mm3 (4.0-10.0)
[2023-07-17 12:22] VITALS: BP 136/73; PULSE 106; RESP 19; TEMP 97.8
== END 2023-07-17 11:22 | disposition home health service (06) | DRG 603 ==
LOC: JER 10:12 → JERBED 16:08 → OBSVTOIN 17:14 → J6S 17:26 → J5S 07-09 18:15 → JICU 07-10 14:21 → J5S 07-11 23:26
PROVIDERS: ADMIT Family Medicine; ATTEND Family Medicine
PROC: 3E0H8GC Introduction of Other Therapeutic Substance into Lower GI, Via Natural or Artificial Opening Endoscopic (ICD-10-PCS; 2023-07-10)
PROC: 3E1H78Z Irrigation of Lower GI using Irrigating Substance, Via Natural or Artificial Opening (ICD-10-PCS; 2023-07-10)
PROC: 30233N1 Transfusion of Nonautologous Red Blood Cells into Peripheral Vein, Percutaneous Approach (ICD-10-PCS; 2023-07-10)
PROC: 0W3P8ZZ Control Bleeding in Gastrointestinal Tract, Via Natural or Artificial Opening Endoscopic (ICD-10-PCS; principal; 2023-07-10 15:15)
DX: L03.116 Cellulitis of left lower limb (principal); E87.1 Hypo-osmolality and hyponatremia; K92.1 Melena; K62.6 Ulcer of anus and rectum; E11.40 Type 2 diabetes mellitus with diabetic neuropathy, unspecified; D64.9 Anemia, unspecified; I25.10 Atherosclerotic heart disease of native coronary artery without angina pectoris; I10 Essential (primary) hypertension; E78.5 Hyperlipidemia, unspecified; B35.1 Tinea unguium; I87.2 Venous insufficiency (chronic) (peripheral); E11.65 Type 2 diabetes mellitus with hyperglycemia; K64.8 Other hemorrhoids
CPT/HCPCS: 36415; 36430; 71045-TC-FY; 73562-TC-LT-FY; 73630-TC-LT; 73700-TC-RT; 74174-TC; 80048; 80053; 81003; 82962; 83735; 83880; 83930; 83935; 84100; 84300; 84443; 84484; 85025; 85027; 85610; 85730; 86850; 86900; 86901; 86922; 87040; 87635; 93005; 93010; 93971-TC; 97116-GP; 97162-GP; 99285-25; G0378; J0131; J1644; P9038; P9058; Q9967

== ENCOUNTER 2023-08-11 12:56 | Inpatient (IN) | payer OTHER ==
[2023-08-11] MEDS ORDERED: FAMOTIDINE 20 MG TABLET ONE (14:34)
[2023-08-11] MEDS ORDERED: PIPERACILLIN/TAZOB 4.5 GM 4.5 GM/100 ML BAG IVPB ONE (14:34)
[2023-08-11] MEDS ORDERED: VANCOMYCIN 1 GRAM (PRE-DOCKED) 1,000 MG/250 ML BAG IVPB ONE (14:34)
[2023-08-11] MEDS: PIPERACILLIN/TAZOB 4.5 GM 4.5 GM in DEXTROSE 5%-WATER 100 ML IVPB ONE (14:43)
[2023-08-11 14:44] LABS: BASO % 0.2 % (0-2.0); EOS % 0.1 % (0-4.5); HEMATOCRIT 31.3 % (35.4-49); HEMOGLOBIN 10.6 GM/dL (11.7-16.9); LYMPH % 7.7 % (8-40); MCHC 33.7 g/dl (32.0-35.9); MEAN PLT VOLUME 7.3 fl (7.5-11.1); MONO % 8.5 % (3.8-10.2); NEUT % 83.5 % (42.8-82.8); PLATELET COUNT 375 10^3/uL (134-434); RDW 16.3 % (11.9-15.9); WHITE BLOOD COUNT 14.1 K/mm3 (4.0-10.0)
[2023-08-11] MEDS: FAMOTIDINE 20 MG TABLET PO ONE (14:44)
[2023-08-11 14:50] LABS: INR 1.08 (0.83-1.09); PROTHROMBIN TIME (PATIENT) 12.2 SEC (9.7-13.0)
[2023-08-11 14:53] LABS: ACTIVATED PTT 32.5 SECONDS (25.2-36.5)
[2023-08-11] MEDS: VANCOMYCIN 1,000 MG in DEXTROSE 5%-WATER - 250 ML IVPB ONE (14:53)
[2023-08-11 15:13] LABS: POTASSIUM 5.3 mmol/L (3.5-5.1)
[2023-08-11 15:15] LABS: CALCIUM 8.9 mg/dL (8.5-10.1)
[2023-08-11 15:16] LABS: ALBUMIN 2.2 g/dl (3.4-5.0); BLOOD UREA NITROGEN 23.1 mg/dL (7-18)
[2023-08-11 15:19] LABS: CREATININE 1.1 mg/dL (0.55-1.3)
[2023-08-11 15:20] LABS: TOT PROT 6.7 g/dl (6.4-8.2)
[2023-08-11 15:21] LABS: BILIRUBIN,TOTAL 0.5 mg/dL (0.2-1)
[2023-08-11 15:29] LABS: ERYTHROCYTE SEDIMENTATION RATE 104 mm/hr (0-20)
[2023-08-11 17:59] LABS: BF WBC & OTHER NUCLEATED CELLS 32182 /mm3
[2023-08-11 20:24] LABS: BODY FLUID MONOCYTE 13 %
[2023-08-12] MEDS ORDERED: ACETAMINOPHEN 325 MG TABLET (FP) PO PRN (08:20)
[2023-08-12 09:15] LABS: BASO % 0.2 % (0-2.0); HEMATOCRIT 28.5 % (35.4-49); HEMOGLOBIN 9.6 GM/dL (11.7-16.9); MCHC 33.5 g/dl (32.0-35.9); MEAN CELL VOLUME 92.6 fl (80-96); MEAN PLT VOLUME 7.1 fl (7.5-11.1); MONO % 11.6 % (3.8-10.2); NEUT % 77.2 % (42.8-82.8); PLATELET COUNT 266 10^3/uL (134-434); RBC 3.08 M/mm3 (4.00-5.60); RDW 15.5 % (11.9-15.9); WHITE BLOOD COUNT 9.8 K/mm3 (4.0-10.0)
[2023-08-12 09:30] LABS: POTASSIUM 3.4 mmol/L (3.5-5.1)
[2023-08-12 09:58] LABS: ALBUMIN 1.9 g/dl (3.4-5.0)
[2023-08-12 09:59] LABS: CALCIUM 8.4 mg/dL (8.5-10.1)
[2023-08-12 10:00] LABS: BLOOD UREA NITROGEN 23.3 mg/dL (7-18); MAGNESIUM 1.8 mg/dL (1.8-2.4)
[2023-08-12 10:02] LABS: CREATININE 0.8 mg/dL (0.55-1.3); PHOSPHOROUS 3.1 mg/dL (2.5-4.9)
[2023-08-12] MEDS: hydrALAZINE HCL 25 MG TABLET (FP) PO SCH (10:02)
[2023-08-12] MEDS: FAMOTIDINE 20 MG TABLET PO SCH (10:02)
[2023-08-12] MEDS: metoPROLOL SUCCINATE 25 MG TAB.SR.24H (FP) PO SCH (10:02)
[2023-08-12] MEDS: FUROSEMIDE 40 MG TABLET (FP) PO SCH (10:02)
[2023-08-12] MEDS: VALSARTAN 160 MG TABLET PO SCH (10:02)
[2023-08-12 10:03] LABS: BILIRUBIN,TOTAL 0.7 mg/dL (0.2-1); TOT PROT 5.6 g/dl (6.4-8.2)
[2023-08-12] MEDS: POTASSIUM CHLORIDE ORAL LIQUID 20 MEQ/15 ML PO ONE (12:01)
[2023-08-12] MEDS: ACETAMINOPHEN 325 MG TABLET (FP) PO PRN (16:06)
[2023-08-12] MEDS: INSULIN ASPART SLIDING SCALE (NOVOLOG) 1 VIAL SQ SCH ×2 (17:10→17:55)
[2023-08-13 08:21] LABS: POTASSIUM 3.4 mmol/L (3.5-5.1)
[2023-08-13 08:29] LABS: BLOOD UREA NITROGEN 23.2 mg/dL (7-18); CREATININE 0.8 mg/dL (0.55-1.3)
[2023-08-13 08:30] LABS: BILIRUBIN,TOTAL 0.4 mg/dL (0.2-1); TOT PROT 5.7 g/dl (6.4-8.2)
[2023-08-13 08:31] LABS: CALCIUM 8.2 mg/dL (8.5-10.1)
[2023-08-13] MEDS: POTASSIUM CHLORIDE ORAL LIQUID 20 MEQ/15 ML PO ONE (10:53)
[2023-08-13] MEDS: SODIUM CHLORIDE 250 ML IV STA (10:53)
[2023-08-13] MEDS: POTASSIUM CHLORIDE TABS 10 MEQ TABLET.ER (FP) PO ONE (11:48)
[2023-08-13] MEDS: MULTIVITAMINS (DAILY MVI) TABLET (FP) PO SCH (13:48)
[2023-08-13] MEDS: ZINC SULFATE 220 MG CAPSULE (FP) PO SCH (13:48)
[2023-08-13] MEDS: ASCORBIC ACID 500 MG TABLET (FP) PO SCH (13:48)
[2023-08-13] MEDS: AMINO ACIDS/PROTEIN HYDROLYS 30 ML LIQUID.PKT PO SCH (17:37)
[2023-08-13 22:09] VITALS: BMI 21.1
[2023-08-14 09:06] LABS: HEMATOCRIT 26.7 % (35.4-49); HEMOGLOBIN 8.9 GM/dL (11.7-16.9); MCH 30.6 pg (25.7-33.7); MCHC 33.2 g/dl (32.0-35.9); MEAN CELL VOLUME 92.3 fl (80-96); MEAN PLT VOLUME 6.9 fl (7.5-11.1); PLATELET COUNT 242 10^3/uL (134-434); RBC 2.89 M/mm3 (4.00-5.60); RDW 15.3 % (11.9-15.9); WHITE BLOOD COUNT 8.4 K/mm3 (4.0-10.0)
[2023-08-14 09:55] LABS: POTASSIUM 3.4 mmol/L (3.5-5.1)
[2023-08-14 10:18] LABS: ALBUMIN 1.9 g/dl (3.4-5.0); BLOOD UREA NITROGEN 23.8 mg/dL (7-18); CALCIUM 8.1 mg/dL (8.5-10.1)
[2023-08-14 10:22] LABS: CREATININE 0.8 mg/dL (0.55-1.3)
[2023-08-14 10:23] LABS: BILIRUBIN,TOTAL 0.4 mg/dL (0.2-1); TOT PROT 5.5 g/dl (6.4-8.2)
[2023-08-14] MEDS: POTASSIUM CHLORIDE ORAL LIQUID 20 MEQ/15 ML PO ONE (11:37)
[2023-08-15 09:49] LABS: BASO % 0.1 % (0-2.0); HEMATOCRIT 28.4 % (35.4-49); HEMOGLOBIN 9.6 GM/dL (11.7-16.9); LYMPH % 8.3 % (8-40); MCH 30.6 pg (25.7-33.7); MCHC 33.6 g/dl (32.0-35.9); MEAN CELL VOLUME 91.1 fl (80-96); MEAN PLT VOLUME 6.7 fl (7.5-11.1); MONO % 10.6 % (3.8-10.2); PLATELET COUNT 242 10^3/uL (134-434); RBC 3.12 M/mm3 (4.00-5.60); WHITE BLOOD COUNT 9.6 K/mm3 (4.0-10.0)
[2023-08-15] MEDS: POLYETHYLENE GLYCOL (HEALTHYLAX) 3350 17 GM PACKET PO SCH (09:57)
[2023-08-15 10:05] LABS: POTASSIUM 3.5 mmol/L (3.5-5.1)
[2023-08-15 10:08] LABS: BLOOD UREA NITROGEN 19.8 mg/dL (7-18); CALCIUM 8.4 mg/dL (8.5-10.1)
[2023-08-15 10:09] LABS: ALBUMIN 2.1 g/dl (3.4-5.0)
[2023-08-15 10:12] LABS: CREATININE 0.9 mg/dL (0.55-1.3)
[2023-08-15 10:13] LABS: BILIRUBIN,TOTAL 0.4 mg/dL (0.2-1); TOT PROT 5.7 g/dl (6.4-8.2)
[2023-08-15] MEDS: IRON SUCROSE INJECTION 200 MG in SODIUM CHLORIDE 100 ML IVPB ONE (12:50)
[2023-08-16] MEDS: IRON SUCROSE INJECTION 200 MG in SODIUM CHLORIDE 100 ML IVPB ONE (10:20)
[2023-08-16 15:27] VITALS: PULSE 96
[2023-08-16 17:55] VITALS: BP 137/79; RESP 16
[2023-08-16 18:27] VITALS: TEMP 98.7
== END 2023-08-16 18:46 | disposition short-term general hospital (02) | DRG 638 ==
LOC: JER 12:56 → JERBED 15:12 → J6S 17:41
PROVIDERS: ADMIT Internal Medicine; ATTEND Internal Medicine
DX: E11.69 Type 2 diabetes mellitus with other specified complication (principal); L97.929 Non-pressure chronic ulcer of unspecified part of left lower leg with unspecified severity; M86.9 Osteomyelitis, unspecified; M25.462 Effusion, left knee; L89.151 Pressure ulcer of sacral region, stage 1; D64.9 Anemia, unspecified; D48.0 Neoplasm of uncertain behavior of bone and articular cartilage; I10 Essential (primary) hypertension; E78.5 Hyperlipidemia, unspecified; I25.10 Atherosclerotic heart disease of native coronary artery without angina pectoris
CPT/HCPCS: 0241U-QW; 36415; 71045-TC-FY; 73502-TC-LT-FY; 73562-TC-LT-FY; 73590-TC-LT-FY; 73610-TC-LT-FY; 73702-TC-RT; 73720-LT; 80048; 80053; 82272; 82728; 82962; 83540; 83550; 83735; 84100; 84443; 84479; 85025; 85027; 85610; 85651; 85730; 86140; 87040; 87070; 87075; 87205; 87635; 89060; 93005; 93010; 97116-GP; 97162-GP; 99285-25; J1756; Q9967

== ENCOUNTER 2023-09-25 12:42 | Inpatient (IN) | payer OTHER ==
[2023-09-25 14:28] LABS: BASO % 0.3 % (0-2.0); HEMATOCRIT 39.4 % (35.4-49); HEMOGLOBIN 13.1 GM/dL (11.7-16.9); LYMPH % 10.8 % (8-40); MCH 31.8 pg (25.7-33.7); MCHC 33.2 g/dl (32.0-35.9); MEAN CELL VOLUME 95.8 fl (80-96); MEAN PLT VOLUME 8.5 fl (7.5-11.1); NEUT % 82.9 % (42.8-82.8); PLATELET COUNT 124 10^3/uL (134-434); RBC 4.11 M/mm3 (4.00-5.60); RDW 19.6 % (11.9-15.9)
[2023-09-25 14:39] LABS: VENOUS BASE EXCESS -11.1 mmol/L (-2-2); VENOUS O2 SATURATION 60.4 % (70-80); VENOUS PCO2 32.3 mmHg (38-52); VENOUS PH 7.272 (7.310-7.410)
[2023-09-25 14:42] LABS: ACTIVATED PTT 35.9 SECONDS (25.2-36.5); INR 1.21 (0.83-1.09); PROTHROMBIN TIME (PATIENT) 13.8 SEC (9.7-13.0)
[2023-09-25 14:50] LABS: POTASSIUM 3.6 mmol/L (3.5-5.1)
[2023-09-25 14:52] LABS: CALCIUM 9.2 mg/dL (8.5-10.1)
[2023-09-25 14:53] LABS: BLOOD UREA NITROGEN 67.8 mg/dL (7-18)
[2023-09-25 14:56] LABS: CREATININE 3.3 mg/dL (0.55-1.3)
[2023-09-25 14:57] LABS: BILIRUBIN,TOTAL 0.5 mg/dL (0.2-1)
[2023-09-25 15:22] LABS: LACTIC ACID 10.4 mmol/L (0.4-2.0)
[2023-09-25] MEDS ORDERED: VANCOMYCIN/WATER 1250 MG 1,250 MG/250 ML BAG IVPB ONE (16:28)
[2023-09-25] MEDS ORDERED: PIPERACILLIN/TAZOB 4.5 GM 4.5 GM/100 ML BAG IVPB ONE (16:28)
[2023-09-25] MEDS: SODIUM CHLORIDE 0.45% 1,000 ML IV SCH ×2 (17:38→20:44)
[2023-09-25] MEDS: VANCOMYCIN/WATER 1250 MG 1,250 MG/250 ML BAG IVPB ONE (17:38)
[2023-09-25] MEDS: PIPERACILLIN/TAZOB 4.5 GM 4.5 GM in DEXTROSE 5%-WATER 100 ML IVPB ONE (17:38)
[2023-09-25 17:49] LABS: EPI CELLS 13 /uL (0-25.1); HYALINE CASTS 1 /uL (0-3.1); PH,URINE 5.5 (5.0-8.0); URINE APPEARANCE CLEAR; URINE BACTERIA 1 /uL (0-1359); URINE BILIRUBIN NEGATIVE (NEGATIVE); URINE COLOR YELLOW; URINE GLUCOSE (UA) NEGATIVE (NEGATIVE); URINE KETONE TRACE (NEGATIVE); URINE LEUK ESTERASE NEGATIVE (NEGATIVE); URINE NITRITE NEGATIVE (NEGATIVE); URINE PROTEIN 2+ (NEGATIVE); URINE RBC 17 /uL (0-23.9); URINE UROBILINOGEN 0.2 mg/dL (0.2-1.0); URINE WBC 20 /uL (0-25.8)
[2023-09-25 19:23] LABS: CHLORIDE 119 mmol/L (98-107); SODIUM 151 mmol/L (136-145)
[2023-09-25 19:25] LABS: ALBUMIN 1.8 g/dl (3.4-5.0); CALCIUM 8.5 mg/dL (8.5-10.1); CO2 14 mmol/L (21-32); GLUCOSE,RANDOM 75 mg/dL (74-106)
[2023-09-25 19:26] LABS: BLOOD UREA NITROGEN 66.8 mg/dL (7-18)
[2023-09-25 19:28] LABS: SGPT/ALT 14 U/L (13-61)
[2023-09-25 19:29] LABS: CREATININE 3.3 mg/dL (0.55-1.3); SGOT/AST 14 U/L (15-37)
[2023-09-25 19:30] LABS: BILIRUBIN,TOTAL 0.5 mg/dL (0.2-1)
[2023-09-25 19:32] LABS: ALK PHOS 69 U/L (45-117)
[2023-09-25 19:40] LABS: ANION GAP 18 mmol/L (4-13); POTASSIUM 2.8 mmol/L (3.5-5.1)
[2023-09-25 20:23] LABS: LACTIC ACID 11.1 mmol/L (0.4-2.0)
[2023-09-25] MEDS: LACTATED RINGERS SOLUTION 1000 ML INFUS.BAG IV ONE (20:57)
[2023-09-25] MEDS ORDERED: SODIUM BICARBONATE 8.4% 50 MEQ/50 ML VIAL ONE (21:07)
[2023-09-25] MEDS: SODIUM BICARBONATE 8.4% 50 MEQ/50 ML DISP.SYRIN IVPUSH ONE ×2 (21:22→21:35)
[2023-09-25] MEDS: KCL 10 MEQ IVPB 10 MEQ/100 ML INFUS.BAG IVPB SCH (21:23)
[2023-09-26] MEDS ORDERED: VANCOMYCIN 1 GM PREMIX - 1 GM/200 ML BAG IVPB ONE (00:02)
[2023-09-26] MEDS: THIAMINE HCL 200 MG/2 ML VIAL IVPB SCH (01:14)
[2023-09-26] MEDS: KCL 10 MEQ IVPB 10 MEQ/100 ML INFUS.BAG IVPB SCH (01:16)
[2023-09-26] MEDS: PANTOPRAZOLE SODIUM 40 MG VIAL IVPUSH SCH (01:18)
[2023-09-26] MEDS: HEPARIN NA (PORCINE) 5,000 UNITS/ML 1ML VIAL SQ SCH (01:18)
[2023-09-26 01:23] LABS: BASO % 0.1 % (0-2.0); HEMATOCRIT 33.8 % (35.4-49); HEMOGLOBIN 10.8 GM/dL (11.7-16.9); LYMPH % 5.9 % (8-40); MCH 30.8 pg (25.7-33.7); MCHC 31.9 g/dl (32.0-35.9); MEAN CELL VOLUME 96.7 fl (80-96); MEAN PLT VOLUME 8.1 fl (7.5-11.1); MONO % 7.4 % (3.8-10.2); NEUT % 86.6 % (42.8-82.8); PLATELET COUNT 106 10^3/uL (134-434); WHITE BLOOD COUNT 11.8 K/mm3 (4.0-10.0)
[2023-09-26 01:29] LABS: INR 1.42 (0.83-1.09); PROTHROMBIN TIME (PATIENT) 16.2 SEC (9.7-13.0)
[2023-09-26 01:31] LABS: ACTIVATED PTT 43.7 SECONDS (25.2-36.5)
[2023-09-26 01:36] LABS: POTASSIUM 3.3 mmol/L (3.5-5.1)
[2023-09-26 01:38] LABS: ALBUMIN 1.5 g/dl (3.4-5.0); CALCIUM 7.8 mg/dL (8.5-10.1)
[2023-09-26 01:39] LABS: MAGNESIUM 1.5 mg/dL (1.8-2.4)
[2023-09-26 01:42] LABS: CREATININE 2.9 mg/dL (0.55-1.3); PHOSPHOROUS 3.6 mg/dL (2.5-4.9)
[2023-09-26 01:43] LABS: BILIRUBIN,TOTAL 0.5 mg/dL (0.2-1)
[2023-09-26 01:44] LABS: POTASSIUM 3.4 mmol/L (3.5-5.1); TOT PROT 5.2 g/dl (6.4-8.2)
[2023-09-26 01:46] LABS: CALCIUM 7.8 mg/dL (8.5-10.1)
[2023-09-26 01:47] LABS: ALBUMIN 1.5 g/dl (3.4-5.0); BLOOD UREA NITROGEN 63.8 mg/dL (7-18); MAGNESIUM 1.5 mg/dL (1.8-2.4)
[2023-09-26 01:49] LABS: CHOLESTEROL 74 mg/dL (50-200); LDH 244 U/L (87-246)
[2023-09-26 01:50] LABS: LDL CHOLESTEROL (ONLY SJRH) 34 mg/dL (5-100); PHOSPHOROUS 3.7 mg/dL (2.5-4.9)
[2023-09-26 01:51] LABS: BILIRUBIN,TOTAL 0.5 mg/dL (0.2-1); HDL CHOLESTEROL 22 mg/dL (40-60); TOT PROT 5.2 g/dl (6.4-8.2)
[2023-09-26 01:54] LABS: LACTIC ACID 10.4 mmol/L (0.4-2.0)
[2023-09-26] MEDS: SODIUM CHLORIDE 0.45% 1,000 ML IV SCH (02:21)
[2023-09-26] MEDS: MAGNESIUM 2GM/50ML STERILE WATER IVPB IVPB ONE (02:28)
[2023-09-26] MEDS: VANCOMYCIN/WATER FOR INJ (PEG) 1 GM/200 ML BAG IVPB ONE (04:00)
[2023-09-26] MEDS: DEXTROSE 50%-WATER 25 GM/50 ML DISP.SYRIN IVPUSH PRN (04:56)
[2023-09-26] MEDS: CEFEPIME HCL 2 GM VIAL (RESTRICTED TO ID) IVPB SCH ×3 (05:58→19:28)
[2023-09-26] MEDS: LACTATED RINGERS SOLUTION 1,000 ML/1,000 ML INFUS.BAG IV STA (07:14)
[2023-09-26 08:22] LABS: HEMATOCRIT 28.6 % (35.4-49); HEMOGLOBIN 9.4 GM/dL (11.7-16.9); LYMPH % 9.7 % (8-40); MCH 31.6 pg (25.7-33.7); MEAN CELL VOLUME 95.8 fl (80-96); MEAN PLT VOLUME 8.5 fl (7.5-11.1); MONO % 6.6 % (3.8-10.2); NEUT % 83.7 % (42.8-82.8); PLATELET COUNT 91 10^3/uL (134-434); RBC 2.98 M/mm3 (4.00-5.60); RDW 18.9 % (11.9-15.9); WHITE BLOOD COUNT 10.7 K/mm3 (4.0-10.0)
[2023-09-26 08:29] LABS: INR 1.4 (0.83-1.09); PROTHROMBIN TIME (PATIENT) 15.7 SEC (9.7-13.0)
[2023-09-26 08:32] LABS: ACTIVATED PTT 45.5 SECONDS (25.2-36.5)
[2023-09-26 08:41] LABS: POTASSIUM 3.5 mmol/L (3.5-5.1)
[2023-09-26 08:42] LABS: CALCIUM 7.6 mg/dL (8.5-10.1)
[2023-09-26 08:43] LABS: ALBUMIN 1.3 g/dl (3.4-5.0); BLOOD UREA NITROGEN 66.6 mg/dL (7-18)
[2023-09-26 08:48] LABS: BILIRUBIN,TOTAL 0.4 mg/dL (0.2-1); TOT PROT 4.4 g/dl (6.4-8.2)
[2023-09-26 08:51] LABS: N-TERMINAL BNP 20368.8 pg/ml (5-450)
[2023-09-26 08:52] LABS: METHADONE, UR NEGATIVE (NEGATIVE); PHENCYCLIDINE,URINE NEGATIVE (NEGATIVE); URINE BARBITURATES NEGATIVE (NEGATIVE); URINE BENZODIAZEPINES NEGATIVE (NEGATIVE)
[2023-09-26 08:53] LABS: URINE AMPHETAMINES NEGATIVE (NEGATIVE)
[2023-09-26 08:54] LABS: LACTIC ACID 9.5 mmol/L (0.4-2.0)
[2023-09-26 08:54] LABS: COCAINE, UR NEGATIVE (NEGATIVE); OPIATES, URI NEGATIVE (NEGATIVE)
[2023-09-26 09:41] LABS: LACTIC ACID 9.3 mmol/L (0.4-2.0)
[2023-09-26] MEDS ORDERED: THIAMINE HCL 200 MG/2 ML VIAL IVPB SCH (10:00)
[2023-09-26] MEDS: NOREPINEPHRINE BITARTRATE/D5W 8 MG/250 ML BAG IVPB SCH (10:26)
[2023-09-26] MEDS: MUPIROCIN 2% TOPICAL OINTMENT FOR DECOLONIZATION NS SCH (10:50)
[2023-09-26] MEDS ORDERED: DEXTROSE 50%-WATER - 25 GM/50 ML VIAL IVPUSH PRN (11:36)
[2023-09-26] MEDS: DEXTROSE 5%-0.45% SALINE 1,000 ML IV SCH (11:56)
[2023-09-26] MEDS: MEROPENEM 1 GM in DEXTROSE 5%-WATER 100 ML IVPB SCH (15:06)
[2023-09-26] MEDS ORDERED: MEROPENEM 1 GM VIAL (RESTRICTED TO ID) IVPB ONE (15:23)
[2023-09-26] MEDS: POTASSIUM CHLORIDE ORAL LIQUID 20 MEQ/15 ML PO ONE (19:28)
[2023-09-26] MEDS: LACTATED RINGERS SOLUTION 1000 ML INFUS.BAG IV ONE (19:29)
[2023-09-26] MEDS: SODIUM CHLORIDE 0.9% 500 ML INFUS.BAG IV ONE (19:30)
[2023-09-26] MEDS: CHLORHEXIDINE GLUCONATE 4% CLEANSER FOR DECOLONIZATION TP SCH (21:04)
[2023-09-27 09:34] LABS: BASO % 0.1 % (0-2.0); EOS % 0.1 % (0-4.5); HEMATOCRIT 29.8 % (35.4-49); HEMOGLOBIN 9.9 GM/dL (11.7-16.9); MCH 30.8 pg (25.7-33.7); MCHC 33.2 g/dl (32.0-35.9); MEAN CELL VOLUME 92.7 fl (80-96); MEAN PLT VOLUME 8.4 fl (7.5-11.1); MONO % 8.3 % (3.8-10.2); NEUT % 83.5 % (42.8-82.8); PLATELET COUNT 79 10^3/uL (134-434); RBC 3.21 M/mm3 (4.00-5.60); WHITE BLOOD COUNT 17.1 K/mm3 (4.0-10.0)
[2023-09-27 09:47] LABS: CHLORIDE 113 mmol/L (98-107); SODIUM 146 mmol/L (136-145)
[2023-09-27 09:49] LABS: CALCIUM 7.4 mg/dL (8.5-10.1)
[2023-09-27 09:50] LABS: ALBUMIN 1.3 g/dl (3.4-5.0); BLOOD UREA NITROGEN 70.3 mg/dL (7-18); CO2 16 mmol/L (21-32); GLUCOSE,RANDOM 156 mg/dL (74-106); MAGNESIUM 1.9 mg/dL (1.8-2.4)
[2023-09-27 09:53] LABS: CREATININE 3.4 mg/dL (0.55-1.3); SGOT/AST 40 U/L (15-37); SGPT/ALT 23 U/L (13-61)
[2023-09-27 09:54] LABS: BILIRUBIN,TOTAL 0.3 mg/dL (0.2-1)
[2023-09-27 09:55] LABS: TOT PROT 4.3 g/dl (6.4-8.2)
[2023-09-27 09:56] LABS: ALK PHOS 77 U/L (45-117)
[2023-09-27 09:57] LABS: ANION GAP 17 mmol/L (4-13); POTASSIUM 2.9 mmol/L (3.5-5.1)
[2023-09-27] MEDS: DEXTROSE 5%-0.45% SALINE 1,000 ML IV SCH (10:49)
[2023-09-27] MEDS: KCL 10 MEQ IVPB 10 MEQ/100 ML INFUS.BAG IVPB SCH (10:59)
[2023-09-27] MEDS: FUROSEMIDE 40 MG/4 ML INJECTABLE VIAL IVPUSH ONE (12:01)
[2023-09-27] MEDS ORDERED: AMINO ACIDS 4.25%/D5W 1,000 ML IV SCH (13:00)
[2023-09-27] MEDS: POTASSIUM CHLORIDE 10 MEQ in AMINO ACIDS 4.25%/D5W 1,000 ML IV SCH (16:00)
[2023-09-27 16:08] VITALS: BMI 20.6
[2023-09-27] MEDS: VANCOMYCIN/WATER FOR INJ (PEG) 1,000 MG/200 ML BAG IVPB ONE (18:37)
[2023-09-27] MEDS: FUROSEMIDE 100 MG/10 ML INJECTABLE VIAL IVPB ONE (21:47)
[2023-09-28 06:53] LABS: HEMATOCRIT 29.9 % (35.4-49); HEMOGLOBIN 9.8 GM/dL (11.7-16.9); MCH 30.7 pg (25.7-33.7); MCHC 32.9 g/dl (32.0-35.9); MEAN CELL VOLUME 93.3 fl (80-96); MEAN PLT VOLUME 8.5 fl (7.5-11.1); PLATELET COUNT 64 10^3/uL (134-434); RDW 18.6 % (11.9-15.9); WHITE BLOOD COUNT 13.2 K/mm3 (4.0-10.0)
[2023-09-28 07:10] LABS: POTASSIUM 3.5 mmol/L (3.5-5.1)
[2023-09-28 07:20] LABS: BLOOD UREA NITROGEN 71.3 mg/dL (7-18); CALCIUM 7.5 mg/dL (8.5-10.1)
[2023-09-28 07:21] LABS: ALBUMIN 1.2 g/dl (3.4-5.0); MAGNESIUM 1.8 mg/dL (1.8-2.4)
[2023-09-28 07:24] LABS: CREATININE 3.5 mg/dL (0.55-1.3); PHOSPHOROUS 2.4 mg/dL (2.5-4.9)
[2023-09-28 07:25] LABS: BILIRUBIN,TOTAL 0.4 mg/dL (0.2-1); TOT PROT 4.3 g/dl (6.4-8.2)
[2023-09-28] MEDS: THIAMINE HCL 200 MG/2 ML VIAL IVPB SCH (09:21)
[2023-09-29] MEDS ORDERED: FUROSEMIDE 40 MG/4 ML INJECTABLE VIAL ONE (00:39)
[2023-09-29] MEDS: FUROSEMIDE 40 MG/4 ML INJECTABLE VIAL IVPUSH ONE (00:40)
[2023-09-29] MEDS: MORPHINE SULFATE 2 MG/ML SYRINGE IVPUSH ONE (00:40)
[2023-09-29 06:54] LABS: HEMATOCRIT 31.5 % (35.4-49); HEMOGLOBIN 10.3 GM/dL (11.7-16.9); MCH 31.2 pg (25.7-33.7); MCHC 32.8 g/dl (32.0-35.9); PLATELET COUNT 65 10^3/uL (134-434); RBC 3.32 M/mm3 (4.00-5.60); RDW 18.4 % (11.9-15.9); WHITE BLOOD COUNT 12.1 K/mm3 (4.0-10.0)
[2023-09-29 07:09] LABS: POTASSIUM 3.9 mmol/L (3.5-5.1)
[2023-09-29 07:14] LABS: CALCIUM 7.9 mg/dL (8.5-10.1)
[2023-09-29 07:15] LABS: ALBUMIN 1.3 g/dl (3.4-5.0); BLOOD UREA NITROGEN 80.3 mg/dL (7-18); MAGNESIUM 1.8 mg/dL (1.8-2.4)
[2023-09-29 07:17] LABS: CREATININE 4.1 mg/dL (0.55-1.3)
[2023-09-29 07:19] LABS: BILIRUBIN,TOTAL 0.4 mg/dL (0.2-1); TOT PROT 4.6 g/dl (6.4-8.2)
[2023-09-29 09:11] LABS: ANISOCYTOSIS 0; MACROCYTOSIS 0
[2023-09-29 09:19] LABS: PLATELET ESTIMATE DECREASED
[2023-09-29] MEDS: COLLAGENASE CLOSTRIDIUM HIST. 30 GRAMS TUBE TP SCH (11:20)
[2023-09-29] MEDS: MORPHINE SULFATE/0.9% NACL/PF 100 MG/100 ML BAG IVPB SCH (13:49)
[2023-09-29] MEDS: morphine SULFATE 4 MG/ML VIAL IVPUSH ONE (13:49)
[2023-09-29 14:43] VITALS: BP 129/65; RESP 18; TEMP 95.4
[2023-09-30 12:53] VITALS: PULSE 104
== END 2023-09-30 08:44 | disposition expired | DRG 871 ==
LOC: JER 12:42 → JICU 21:14
PROVIDERS: ADMIT Family Medicine; ATTEND Family Medicine
DX: A41.89 Other specified sepsis (principal); G92.8 Other toxic encephalopathy; I21.A1 Myocardial infarction type 2; R65.21 Severe sepsis with septic shock; J18.9 Pneumonia, unspecified organism; E87.20 Acidosis, unspecified; E87.0 Hyperosmolality and hypernatremia; K92.2 Gastrointestinal hemorrhage, unspecified; N17.9 Acute kidney failure, unspecified; M86.68 Other chronic osteomyelitis, other site; I25.10 Atherosclerotic heart disease of native coronary artery without angina pectoris; E11.9 Type 2 diabetes mellitus without complications; E78.5 Hyperlipidemia, unspecified; I10 Essential (primary) hypertension; K21.9 Gastro-esophageal reflux disease without esophagitis; Z95.5 Presence of coronary angioplasty implant and graft; E87.5 Hyperkalemia; D69.6 Thrombocytopenia, unspecified; L89.156 Pressure-induced deep tissue damage of sacral region
CPT/HCPCS: 0241U-QW; 36415; 70450-TC; 71045-TC-FY; 74176-TC; 76775-TC; 76856-TC; 80053; 80061; 80307; 81003; 82010; 82308; 82550; 82570; 82803; 82962; 83036; 83605; 83615; 83690; 83735; 83880; 83930; 83935; 84100; 84300; 84436; 84443; 84484; 85025; 85610; 85730; 86850; 86900; 86901; 87040; 87081; 87086; 87899; 93005; 93010; 93306-TC; 99285-25; G0480; J1644